=== PATIENT | female | born 1940 | race African-American/Black ===

== ENCOUNTER 2017-11-03 11:21 | Day surgery (SDC) | payer MEDICARE ==
[~2017-11-03] VITALS: Ht 160 cm; Wt 133.6 kg
--- NOTE | ~2017-11-03 | OP ---
PATIENT NAME: REYNA PATEL MEDICAL RECORD: [id number] :41 LOCATION:[facility] ADMISSION DATE: SURGEON: VIRGIL PARRA DO DATE OF OPERATION: 11/03/2017 PROCEDURE: EGD with balloon dilation and biopsies. INDICATIONS FOR PROCEDURE: Dysphagia, heartburn, generalized abdominal pain, nausea. SCOPE: [employer] video gastroscope. MEDICATIONS: Propofol 250 mg IV per anesthesia. ESTIMATED BLOOD LOSS: Minimal. COMPLICATIONS: None. FINDINGS: Informed consent was given. The patient was made comfortable with the above medication. After reaching an adequate level of sedation by slow IV push, the patient was placed in the left side. The endoscope was then advanced under direct visualization through the mouth to the second portion of the duodenum. The upper, middle, and lower thirds of the esophagus appeared normal. At the GE junction, there was mild evidence of LA class A reflux induced esophagitis as well as a very mild Schatzki ring. The endoscope was advanced beyond the ring in the GE junction easily into the stomach and retroflexed to view the cardia, which revealed a very small sliding hiatal hernia. The mucosa of the entire stomach appeared normal. Random biopsies were taken to submit for histology and to rule out H. pylori. The endoscope was advanced beyond the pylorus into the duodenum. The entire examined duodenum appeared normal. The endoscope was then withdrawn back into the esophagus and the stomach. An 18-20 mm CRE balloon was placed through the channel and centered along the Schatzki ring. The balloon was dilated up to 20 mm diameter successfully. Post-procedural endoscopic appearances were satisfactory. The endoscope was then withdrawn from the patient. The patient tolerated the procedure well and there were no complications. IMPRESSION: 1. LA class A reflux-induced esophagitis. 2. Mild Schatzki's ring dilated up to 20 mm diameter. 3. Small sliding hiatal hernia. PLAN AND RECOMMENDATIONS: 1. Discharge home when recovery parameters are met. 2. GERD precautions. 3. Continue current medications including omeprazole 40 mg daily and Pepcid 40 mg in the evening. This regimen can continue for 60 days, then consider reducing to Pepcid alone. 4. Follow up in GI clinic as needed. TRANSINT:[id number] Voice Confirmation ID: [id number] DOCUMENT ID: [id number] OPERATIVE REPORT [id number] REYNA PATELVIRGIL CHENG DO at 1524 CC: [id number] DICTATION DATE: 11/03/17 1322 TERMINOLOGIST: 11/03/17 1449 [facility] 11/03/17 [id number] [place] [address]
[~2017-11-03 11:21] MED LIST: BAYER CHEWABLE81 MG PO; BUSPAR5 MG PO; CALCIUM 600+D T1 TA1 PO; CYMBALTA60 MG; DIOVAN HCT 160/1 TA1 PO; DITROPAN X10 MG/BOTT PO; FERROUS SULFAT325 MG PO; HUMALOG MIX 75/23 ML; KLOR-CON 1010 MEQ; LANTUS SOL100 UNIT/1 SC; LOPID600 MG PO; LYRICA50 MG; METOPROLOL TART50 MG PO; PEPCID AC20 MG PO; PEPCID40 MG PO; PRAVACHOL40 MG PO; PREVACID30 MG PO; ROBAXIN-750750 MG; ULTRAM50 MG PO; VENTOLIN HFA18 GM; VITAMIN B-12500 MCG; VITAMIN D3400 UNI1
[2017-11-03] MEDS ORDERED: HCTZ25 MG PO (11:49)
[2017-11-03] MEDS ORDERED: CYCLOBENZAPRINE10 MG PO (11:50)
[2017-11-03] MEDS ORDERED: MYRBETRIQ50 MG PO (11:51)
[2017-11-03] MEDS ORDERED: REMERON30 MG PO (11:51)
[2017-11-03] MEDS ORDERED: NEURONTIN 400400 MG PO (11:56)
[2017-11-03] MEDS ORDERED: OMEPRAZOLE40 MG PO (11:57)
[2017-11-03] MEDS ORDERED: NORCO 7.5/325 T1 TA1 PO (11:58)
[2017-11-03] MEDS ORDERED: KLOR-CON 1010 MEQ PO (12:00)
[2017-11-03] MEDS ORDERED: FLUTICASONE PRO16 GM NASAL (12:01)
[2017-11-03] MEDS ORDERED: NYSTATIN1 PWD TOPICAL (12:02)
[2017-11-03] MEDS ORDERED: VENTOLIN HFA18 GM INH (12:03)
[2017-11-03 12:18] VITALS: BP 173/100; Ht 160 cm; Wt 133.6 kg
[2017-11-03 12:41] LABS: HEMATOCRIT 38.6 % (36.0-48.0); HEMOGLOBIN 12.5 g/dL (12-16); MCH 28.7 pg (26.0-34.0); MCHC 32.4 g/dL (31.0-37.0); MCV 88.7 fL (80.0-100.0); MEAN PLATELET VOLUME 10.2 fL (7.4-10.4); RBC 4.35 10x6/uL (4.00-5.40); RDW 13.7 % (11.5-14.5); WBC 10.4 10x3/uL (4.8-10.8)
[2017-11-03 12:45] LABS: CALCIUM 9.5 mg/dL (8.5-10.1); CARBON DIOXIDE 30.6 mmol/L (21.0-32.0); CREATININE - SERUM 1.4 mg/dL (0.6-1.3); POTASSIUM - SERUM 4.6 mmol/L (3.5-5.1)
== END 2017-11-03 14:42 | disposition home or self-care (01) ==
LOC: D.OPS 11:21
PROVIDERS: Anesthesiology
DX: R13.10 Dysphagia, unspecified (principal); R10.84 Generalized abdominal pain; J45.909 Unspecified asthma, uncomplicated; I10 Essential (primary) hypertension; K21.0 Gastro-esophageal reflux disease with esophagitis; K44.9 Diaphragmatic hernia without obstruction or gangrene; K22.2 Esophageal obstruction; Z01.812 Encounter for preprocedural laboratory examination; E11.9 Type 2 diabetes mellitus without complications

== ENCOUNTER 2017-11-10 12:35 | Day surgery (SDC) | payer MEDICARE ==
[~2017-11-10] VITALS: Ht 160 cm; Wt 134.1 kg
--- NOTE | ~2017-11-10 | OP ---
PATIENT NAME: REYNA PATEL MEDICAL RECORD: [id number] :41 LOCATION:[facility] ADMISSION DATE: SURGEON: VIRGIL PARRA DO DATE OF OPERATION: 11/10/2017 PROCEDURE: Colonoscopy with polypectomy. INDICATIONS FOR PROCEDURE: History of colon polyps, generalized abdominal pain. SCOPE: [employer] video pediatric colonoscope. MEDICATIONS: Propofol 330mg IV per anesthesia. WITHDRAWAL TIME: 14 minutes. ESTIMATED BLOOD LOSS: Minimal. COMPLICATIONS: None. FINDINGS: Informed consent was given. The patient was made comfortable with the above medication. After reaching an adequate level of sedation by slow IV push, the patient was placed on her left side. A digital rectal examination was performed and was normal. The endoscope was then advanced under direct visualization through the rectum to the cecum with visualization of the appendiceal orifice and ileocecal valve. The scope was slowly withdrawn and mucosa was carefully examined. The prep quality was fair. There was a segment in the proximal ascending colon that was difficult to visualize all of the mucosa due to some retained stool debris in a pool of liquid. There was also a segment in the descending colon with a similar situation that made visualization of the entire mucosa impossible. There were 4 polyps visualized on today's examination. Two were located in the ascending colon. They were benign-appearing and sessile and ranged in size from 2-4 mm in diameter. They were both removed using hot forceps in 1 piece and completely retrieved. Another polyp was a benign appearing sessile polyp, which measured approximately 2-3 mm in diameter in the cecum. It was removed using cold forceps in 1 piece and completely retrieved. The final polyp was located in the transverse colon. It was benign appearing sessile polyp, which measured approximately 3 mm in diameter. It was removed using hot forceps in 1 piece and completely retrieved. The remainder of the examination was normal. Retroflexion was performed in the rectum with a normal appearing rectal wall. The endoscope was withdrawn from the patient. The patient tolerated the procedure well and there were no complications. IMPRESSION: 1. Four polyps as described above and removed using hot and cold forceps. 2. Otherwise, normal colonoscopy. PLAN AND RECOMMENDATIONS: 1. Discharge home when recovery parameters are met. 2. Follow up biopsy specimen results. 3. High fiber diet. 4. Continue current medications. 5. Supplement diet with 1-2 tablespoon of Metamucil or other psyllium husk fiber daily. 6. No further colonoscopies are necessary based on the patient's age, unless OPERATIVE REPORT [id number] REYNA PATEL symptoms warrant evaluation. 7. Follow up in GI clinic in 4-6 weeks. TRANSINT:[id number] Voice Confirmation ID: [id number] DOCUMENT ID: [id number] VIRGIL PARRA DO at 1524 CC: [id number] DICTATION DATE: 11/10/17 1435 LAB SUPPORT TECHNICIAN: 11/10/17 1612 [facility] 11/10/17 [id number] [place] [address]
[~2017-11-10 12:35] MED LIST changes: +CYCLOBENZAPRINE10 MG PO; +FLUTICASONE PRO16 GM NASAL; +HCTZ25 MG PO; +KLOR-CON 1010 MEQ PO; +MYRBETRIQ50 MG PO; +NEURONTIN 400400 MG PO; +NORCO 7.5/325 T1 TA1 PO; +NYSTATIN1 PWD TOPICAL; +OMEPRAZOLE40 MG PO; +REMERON30 MG PO; +VENTOLIN HFA18 GM INH
[2017-11-10 13:16] LABS: HEMATOCRIT 36.8 % (36.0-48.0); HEMOGLOBIN 12.3 g/dL (12-16); MCH 29.2 pg (26.0-34.0); MCHC 33.4 g/dL (31.0-37.0); MCV 87.4 fL (80.0-100.0); MEAN PLATELET VOLUME 9.3 fL (7.4-10.4); RBC 4.21 10x6/uL (4.00-5.40); RDW 13.8 % (11.5-14.5); WBC 9.6 10x3/uL (4.8-10.8)
[2017-11-10 13:32] VITALS: BP 136/75; Ht 160 cm; Wt 134.1 kg
[2017-11-10] MEDS ORDERED: TEGRETOL XR100 MG PO (13:35)
[2017-11-10 13:50] LABS: ANION GAP 15.5 mmol/L (8-16); CALCIUM 9.5 mg/dL (8.5-10.1); CARBON DIOXIDE 30.1 mmol/L (21.0-32.0); CREATININE - SERUM 1.1 mg/dL (0.6-1.3); POTASSIUM - SERUM 3.6 mmol/L (3.5-5.1)
== END 2017-11-10 16:15 | disposition home or self-care (01) ==
LOC: D.OPS 12:35
PROVIDERS: Anesthesiology
DX: D12.2 Benign neoplasm of ascending colon (principal); D12.0 Benign neoplasm of cecum; D12.3 Benign neoplasm of transverse colon; J45.909 Unspecified asthma, uncomplicated; I10 Essential (primary) hypertension; E11.9 Type 2 diabetes mellitus without complications; G47.30 Sleep apnea, unspecified; K21.9 Gastro-esophageal reflux disease without esophagitis; E66.01 Morbid (severe) obesity due to excess calories; Z01.812 Encounter for preprocedural laboratory examination